=== PATIENT | male | born 1955 | race Caucasian/White ===

== ENCOUNTER 2021-05-09 19:08 | Emergency (ER) | payer MEDICARE, BC ==
[2021-05-09] MEDS ORDERED: Iopamidol 755 MG/ML 500 ML Multipack Bottle IVPUSH STA (20:14)
--- NOTE | 2021-05-09 20:54 | CT ---
INDICATION: Epigastric pain. Abnormal LFTs. TECHNIQUE: CT abdomen and pelvis with intravenous contrast, 100 mL of Isovue-370. Coronal and sagittal reformats. COMPARISON: None available. FINDINGS: The imaged lower chest is unremarkable. Normal liver contour. Right inferior hepatic cyst. Tiny subcentimeter hypoattenuating lesion in the lateral left hepatic lobe (series 201, image 33), too small to accurately characterize. Portal and hepatic veins patent. Distended and diffusely thickened gallbladder with multiple small calculi within the gallbladder neck. Mild intrahepatic and extrahepatic biliary dilatation with possible noncalcified stones in the distal common bile duct (reference coronal image 57). The pancreas, spleen, and adrenals are unremarkable. Symmetric renal enhancement. No hydronephrosis bilaterally. Urinary bladder wall appears mildly thickened diffusely. Mild prostatomegaly. The bowel appears normal in caliber and enhancement diffusely. No free air, free fluid, focal collection, or lymphadenopathy. Normal caliber abdominal aorta with mild less moderate atherosclerotic calcification. Major branch vessels appear patent. No suspicious osseous lesion. IMPRESSION: 1. Mild diffuse biliary dilatation with suspicion for noncalcified choledocholithiasis. Consider further evaluation with ERCP or MRCP. 2. Distended and thickened gallbladder with multiple calculi in the gallbladder neck findings. Findings may be secondary to distal common bile duct obstruction in the setting of choledocholithiasis, though acute cholecystitis may appear similar. Case discussed with Dr. Fei Patino on 05/09/2021 at 8:50 p.m. Dictated by Silviano Pierre MD @ 05/09/2021 8:53:14 PM Please note that all CT scans at this facility use dose modulation, iterative reconstruction, and/or weight-based dosing when appropriate to reduce radiation dose to as low as reasonably achievable. Dictated by: Silviano Pierre MD @ 05/09/2021 20:53:35 (Electronically Signed)
[2021-05-09] MEDS ORDERED: cefTRIAXone 2 GM in Premix Bag 1 BAG IV ONE (21:23)
--- NOTE | 2021-05-09 21:30 | US ---
HISTORY: Epigastric pain. TECHNIQUE: Ultrasound of the right upper quadrant. COMPARISON: CT abdomen pelvis same day. FINDINGS: Diffusely increased echogenicity of the liver. 3.5 cm cyst in the inferior right lobe of the liver. Main portal vein is patent with flow directed toward the liver. Cholelithiasis and gallbladder sludge. Borderline bladder wall thickening. No pericholecystic fluid. Common duct is dilated to 13 mm. Possible sludge or small stones in the cystic duct. Visualized pancreas is unremarkable. Right kidney measures 13.1 cm long axis. Normal renal parenchymal thickness and echogenicity. No renal mass. No hydronephrosis. IMPRESSION: 1. Intrahepatic and extrahepatic bile duct dilation. 2. Cholelithiasis. Possible sludge or small stones in the cystic duct. Borderline gallbladder wall thickening without definite acute cholecystitis. Dictated by Sheldon Wallace MD @ 05/09/2021 9:28:[address] Sheldon Wallace @ May 09 2021 9:28PM
--- NOTE | 2021-05-09 22:36 | EDM.PDOC ---
ED HPI GENERAL MEDICAL PROBLEM - General Chief Complaint: Abdominal Pain Stated Complaint: POSSIBLE GALLBLADDER ISSUE, WALK IN REFERRAL Time Seen by Provider: 05/09/21 19:17 - History of Present Illness INITIAL COMMENTS - FREE TEXT/NARRATIVE: CHIEF COMPLAINT(S): Abdominal pain HISTORY OF PRESENT ILLNESS: This is a 66-year-old man with a past medical history of hypertension who comes to the emergency department with a chief c omplaint of abdominal pain. The patient states off and on for a a while now he has been experiencing epigastric pain. He states that yesterday he experienced severe epigastric pain which he rates as 10 out of 10, pressure with radiation to the back. He states that he did have 4 episodes of vomiting which was nonbloody and nonbilious and that it seemed to improve on its own. He states that there is still a mild amount of pain rated 2-3 out of 10. He states that he woke up this morning and ate breakfast and again the pain had returned. He states that he followed up with his primary care physician and they sent him to the emergency department because of some abnormal labs. He denies any continued vomiting, diarrhea, melena, hematochezia, hematemesis or bilious emesis. He denies any chest pain, shortness of breath, nausea. He denies any fevers or chills. He states that the pain is exacerbated by eating. The pain seems to resolve on its own. REVIEW OF SYSTEMS: Constitutional: Denies fever, chills. Eyes: Denies eye pain Ears, Nose, Mouth, & Throat: Denies earache Cardiovascular: Denies chest pain Respiratory: Denies shortness of breath Gastrointestinal: Positive for abdominal pain and vomiting. Denies diarrhea, hematochezia, hematemesis, bilious emesis, melena, hematochezia Genitourinary: Denies hematuria Skin:Denies a rash MSK: Denies joint pain Neurological: Denies blurred vision Psychiatric: Denies depression PAST MEDICAL HISTORY: As per history of present illness and as reviewed below otherwise noncontributory. SURGICAL HISTORY: As per history of present illness and as reviewed below otherwise noncontributory. SOCIAL HISTORY: As per history of present illness and as reviewed below otherwise noncontributory. FAMILY HISTORY: As per history of present illness and as reviewed below otherwise noncontributory. EXAMINATION OF ORGAN SYSTEMS/BODY AREAS: Constitutional: Blood pressure was 138/72, heart rate 84, respiratory rate 18 with an oxygen saturation of 97% on room air. Temperature 36.8 General: Overall well-appearing man who is in no acute distress Psychiatric: Appropriate mood and affect. Eyes: No scleral icterus or conjunctival erythema ENMT: Moist mucous membranes. No pharyngeal erythema Cardiovascular: Regular, rate, and rhythm. No gallops, murmurs, or rubs. Bilateral upper extremity pulses symmetric and intact. No peripheral edema. No JVD. Respiratory: Lungs clear to auscultation bilaterally. No wheezes, rales, or rhonchi. Gastrointestinal: Soft, nondistended, tenderness palpation in the epigastric and right upper quadrant. Negative Fallon's. No rebound or guarding. Normoactive bowel sounds Genitourinary: No suprapubic tenderness no CVA tenderness Musculoskeletal: Normal range of motion. Skin: No lesions or abrasions. Neurological: Alert, GCS 15 MEDICAL DECISION MAKING AND COURSE IN THE ED WITH INTERPRETATION/REVIEW OF DIAGNOSTIC STUDIES: This is a 66-year-old man with a past medical history of hypertension who comes to the emergency department with acute constant epigastric tenderness associated with vomiting with outpatient labs revealing hyperbilirubinemia and transaminitis. At this time I do not believe any repeat labs or imaging. Differential at this time does include acute choledocholithiasis, cholangitis, cholecystitis. Will obtain right upper quadrant ultrasound and CT abdomen pelvis with contrast. Patient's pain is currently well controlled we will hold off on pain medication at this time. The patient will be made n.p.o. Laboratory reviewed: CBC was unremarkable. CMP reveals hypokalemia at 3.2, elevated BUN at 20 and creatinine of 1.4 which is unchanged from prior. Metabolic alkalosis with a bicarbonate of 32.3, hypocalcemia at 8.2, hyperbilirubinemia at 5.0, AST elevation at 174, ALT 618, alkaline phosphatase at 340. Hypoalbuminemia at 3.1. Lipase is normal at 117. The radiological images were viewed by myself along with reading the report from the radiologist. CT abdomen pelvis with contrast reveals mild diffuse biliary dilation with suspicion for noncalcified choledocholithiasis. Distended and thickened gallbladder with multiple calculi in the gallbladder neck. Findings may be secondary to distal common bile duct obstruction in the setting of choledocholithiasis though acute cholecystitis can appear similar. Right upper quadrant abdominal ultrasound reveals intrahepatic and extrahepatic bile ductal dilation. Cholelithiasis with possible sludge or small stones in the cystic duct with borderline gallbladder wall thickening without definitive acute cholecystitis. After imaging I did provide the patient with 2 g of IV ceftriaxone for possible acute cholecystitis. I did discuss them at this time and like to contact outside hospital for transfer given that we do not have ERCP capability. He was amenable to this plan. I contacted [facility] in [place] and spoke with Dr. Randle who accepted the patient for transfer. The patient will be transferred via private vehicle. DISPOSITION: The patient was transferred via private vehicle to [facility] CONDITION: Fair PROCEDURES: None FINAL IMPRESSION(S)/DIAGNOSES: 1. Acute choledocholithiasis Fei Patino M.D. abdominal Pain Score (Numeric/FACES): 3 - Related Data Allergies Allergy/AdvReac Type Severity Reaction Status Date / Time No Known Allergies Allergy Verified 05/09/21 19:17 Home Meds: Home Meds Losartan Potassium 50 mg PO QAM 09/02/18 [History] hydroCHLOROthiazide [Hydrochlorothiazide] 25 mg PO QAM 09/02/18 [History] Past Medical History HEENT History: Reports: Hard of Hearing, Other (See Below) Other HEENT History: has upper permanent dental bridge, wears right hearing aide Cardiovascular History: Reports: Hypertension Respiratory History: Reports: Sleep Apnea Other Respiratory History: uses CPAP Gastrointestinal History: Reports: Colon Polyp Neurological History: Reports: Concussion Other Neuro History: hx of skull fx Endocrine/Metabolic History: Reports: Obesity/BMI 30+ - Infectious Disease History Infectious Disease History: Reports: Chicken Pox, Mumps - Past Surgical History Head Surgeries/Procedures: Reports: None HEENT Surgical History: Reports: Naso-Sinus Surgery, Oral Surgery Other HEENT Surgeries/Procedures: has dental implant GI Surgical History: Reports: Appendectomy, Colonoscopy Social & Family History - Family History Family Medical History: No Pertinent Family History - Tobacco Use Tobacco Use Status *Q: Never Tobacco User - Caffeine Use Caffeine Use: Reports: Coffee - Recreational Drug Use Recreational Drug Use: No ED ROS GENERAL - Review of Systems Review Of Systems: See Below ED EXAM, GENERAL - Physical Exam Exam: See Below Course - Vital Signs Last Recorded V/S: Last Vital Signs Temp 36.9 C 05/09/21 22:27 Pulse 67 05/09/21 22:27 Resp 18 05/09/21 22:27 BP 136/53 L 05/09/21 22:27 Pulse Ox 98 05/09/21 22:27 - Orders/Labs/Meds Meds: Medications Discontinued Medications Generic Name Dose Route Start Last Admin Trade Name Bryce PRN Reason Stop Dose Admin Ceftriaxone Sodium/Dextrose 2 50 mls @ 100 mls/hr 05/09/21 21:23 05/09/21 21:29 gm/ Premix IV 05/09/21 21:52 100 mls/hr ONETIME ONE Administration Iopamidol 100 ml 05/09/21 20:14 05/09/21 20:16 Iopamidol 755 Mg/Ml 500 Ml Multipack Bottle IVPUSH 05/09/21 20:15 100 ml ONETIME STA Administration Departure - Departure Time of Disposition: 22:36 Disposition: DC/Tfer to Acute Hospital 02 Condition: Fair Clinical Impression: Choledocholithiasis - Discharge Information Referrals: Marques Medellin MD [Primary Care Provider] - Sepsis Event Note (ED) - Evaluation Sepsis Screening Result: No Definite Risk - Focused Exam Vital Signs: Vital Signs Temp Pulse Resp BP Pulse Ox 05/09/21 22:27 36.9 C 67 18 136/53 L 98 05/09/21 22:23 36.7 C 82 18 130/72 97 05/09/21 21:09 36.8 C 82 18 128/72 97 05/09/21 20:10 84 18 138/72 97 05/09/21 19:18 37.0 C 69 17 141/67 H 95
== END 2021-05-09 22:40 ==
LOC: MW.ED 19:08
DX: K80.50 Calculus of bile duct without cholangitis or cholecystitis without obstruction (principal); I10 Essential (primary) hypertension; E66.9 Obesity, unspecified; Z79.899 Other long term (current) drug therapy; Z68.32 Body mass index [BMI] 32.0-32.9, adult
CPT/HCPCS: 74177; 76705; 96365; 99284; J0696; Q9967